=== PATIENT | male | born 1970 | race African-American/Black ===

== ENCOUNTER 2020-10-03 03:37 | Emergency (ER) | payer OTHER ==
[~2020-10-03] VITALS: Ht 190.5 cm; Wt 136.1 kg
--- NOTE | 2020-10-03 04:13 | NUR ---
ED Nurse Note: pt presented to ambulatory triage complaints of weakness, vomiting blood, nausea, and dark stools, pt is AOx4 ambulatory tachycardic, all other vitals stable no pertinent health history
--- NOTE | 2020-10-03 04:15 | NUR ---
ED Nurse Note: Blood, urine, and guaic sent to lab
--- NOTE | 2020-10-03 04:15 | Emergency Room Report ---
History of Present Illness General Chief Complaint: Gastrointestinal Bleed Source: Patient Present Illness HPI This is a 50-year-old male with history of high blood pressure. He presents with chief complaint of hematemesis. This occurred just prior to arrival. He said he vomited once and there was blood in it. He said his said it was blood. He thinks it is was a red drink that he had. At work today however, he said he had a black stool. Only one episode. He denies any alcohol use. Denies any smoking. Denies any drug use. He did take 4 [id number] Advil this evening. Denies any pain. No nausea no vomiting right now. No fever or chills. No abdominal pain. He did not take any Pepto-Bismol. Allergies: Coded Allergies: No Known Allergies (Unverified , 10/03/20) COVID-19 Screening Contact w/high risk pt: No Experienced COVID-19 symptoms?: Yes COVID-19 Testing performed [employer]: No Patient History Past Medical History: see triage record, old chart reviewed, HTN Past Surgical History: none Pertinent Family History: none Social History: Denies: smoking Immunizations: other Reviewed Nursing Documentation: PMH: Agreed; PSxH: Agreed Review of Systems Eye: Denies: eye pain, blurred vision ENT: Denies: ear pain, nose congestion, throat swelling Respiratory: Denies: cough, shortness of breath Cardiovascular: Denies: chest pain, palpitations Gastrointestinal: Reports: hematemesis; Denies: abdominal pain, diarrhea, nausea, vomiting Musculoskeletal: Denies: back pain, joint pain Skin: Denies: rash Neurological: Denies: headache, numbness Endocrine: Denies: increased thirst, increased urine Hematologic/Lymphatic: Denies: easy bruising All Other Systems: negative except mentioned in HPI Physical Exam Vital Signs Date Time Temp Pulse Resp B/P (MAP) Pulse Ox O2 Delivery O2 Flow Rate FiO2 10/03/20 03:41 98.2 114 20 125/75 (92) 94 Room Air Vitals with tachycardia Sp02 EP Interpretation: reviewed, normal General Appearance: well appearing, no apparent distress, alert, obese Head: normocephalic, atraumatic Eyes: bilateral eye PERRL, bilateral eye EOMI ENT: hearing grossly normal, normal pharynx Neck: full range of motion, supple, no meningismus Respiratory: chest non-tender, lungs clear, normal breath sounds Cardiovascular #1: regular rate, rhythm, no murmur Gastrointestinal: normal bowel sounds, non tender, no mass, no organomegaly, no bruit, non-distended Rectal: heme positive stool - Darkish colored stool Musculoskeletal: back normal, normal range of motion, gait/station normal Psychiatric: mood/affect normal Medical Decision Making Diagnostic Impression: Primary Impression: Gastrointestinal hemorrhage Qualified Codes: K92.0 - Hematemesis ER Course Patient presents with symptoms of an upper GI bleed. Its only one episode and it stopped. Hemoglobin is little low but not near the point of transfusion. He said he felt better now. Will discharge home with proton pump inhibitor and iron. He will be referred to see GI doctor for endoscopy. Told patient to avoid NSAID and aspirin. Last Vital Signs Date Time Temp Pulse Resp B/P (MAP) Pulse Ox O2 Delivery O2 Flow Rate FiO2 10/03/20 03:41 98.2 114 20 125/75 (92) 94 Room Air Status: improved Disposition: HOME, SELF-CARE Condition: Stable Scripts Ferrous Sulfate* (FERROUS SULFATE*) 325 Mg Tablet 325 MG ORAL DAILY for SUPPLEMENT, #30 TAB 0 Refills Prov: Bill Snyder MD 10/03/20 Pantoprazole* (PROTONIX*) 40 Mg Tablet. 40 MG ORAL DAILY, #30 TAB Prov: Bill Snyder MD 10/03/20 Additional Instructions: Avoid NSAIDs (aspirin, Motrin, Advil, Aleve, etc.). Follow-up with your doctor within 7 days. You will need referral to see a GI doctor for endoscopy and/or colonoscopy. Return if symptoms worsen or has more bleeding. Bill Snyder MD Oct 03, 2020 04:15
--- NOTE | 2020-10-03 04:15 | NUR ---
ED Nurse Note: 20G L AC placed
[2020-10-03 04:38] VITALS: BP 125/75
[2020-10-03 05:07] LABS: APPEARANCE,URINE CLEAR; BILIRUBIN, URINE NEGATIVE (NEGATIVE); COLOR,URINE PALE YELLOW; GLUCOSE, URINE (UA) NEGATIVE (NEGATIVE); KETONES,URINE 1+ (NEGATIVE); LEUKOCYTE ESTERASE ,URINE NEGATIVE (NEGATIVE); NITRITE,URINE NEGATIVE (NEGATIVE); PH,URINE 6 (4.5-8.0); PROTEIN,URINE NEGATIVE (NEGATIVE); UROBILINOGEN,URINE NORMAL MG/DL (0.0-1.0)
[2020-10-03 05:10] LABS: BASOPHILS % (AUTO) 1.5 % (0.0-2.0); EOSINOPHILS % (AUTO) 1.2 % (0.0-3.0); HEMATOCRIT 34.7 % (42.0-52.0); HEMOGLOBIN 11.1 G/DL (14.2-18.0); LYMPHOCYTES % (AUTO) 21.9 % (20.0-45.0); MEAN CORPUSCULAR VOLUME 83 FL (80-99); MONOCYTES % (AUTO) 7.2 % (1.0-10.0); NEUTROPHILS % (AUTO) 68.2 % (45.0-75.0); PLATELET COUNT 288 K/UL (150-450); RED BLOOD COUNT 4.16 M/UL (4.70-6.10); RED CELL DISTRIBUTION WIDTH 16.2 % (11.6-14.8); WHITE BLOOD COUNT 10.6 K/UL (4.8-10.8)
[2020-10-03 05:20] LABS: ANION GAP 3 mmol/L (5-15); BLOOD UREA NITROGEN 47 mg/dL (7-18); CALCIUM 7.9 MG/DL (8.5-10.1); CARBON DIOXIDE 30 MMOL/L (21-32); CHLORIDE 105 MMOL/L (98-107); CREATININE 1.1 MG/DL (0.55-1.30); POTASSIUM 3.9 MMOL/L (3.5-5.1); SODIUM 138 MMOL/L (136-145)
[2020-10-03 05:22] LABS: ALANINE AMINOTRANSFERASE 19 U/L (12-78); ALBUMIN/GLOBULIN RATIO 0.9 (1.0-2.7); ALKALINE PHOSPHATASE 58 U/L (46-116); ASPARTATE AMINO TRANSFERASE 18 U/L (15-37); BILIRUBIN,TOTAL 0.4 MG/DL (0.2-1.0)
[2020-10-03 05:32] VITALS: BP 117/73
[2020-10-03] MEDS ORDERED: FERROUS SULFAT325 MG ORAL (05:35)
[2020-10-03] MEDS ORDERED: PROTONIX40 MG ORAL (05:35)
--- NOTE | 2020-10-03 05:42 | NUR ---
ER DISCHARGE NOTE: Patient is cleared to be discharged per ERMD, pt is aox4, on room air, with stable vital signs. pt was given dc and prescription instructions, pt was able to verbalize understanding, pt id band and iv site removed without complications. pt is able to ambulate with steady gait. pt took all belongings.
== END 2020-10-03 05:42 | disposition home or self-care (01) ==
LOC: EMR 04:16
DX: K92.0 Hematemesis (principal); I10 Essential (primary) hypertension
CPT/HCPCS: 36415; 80053; 81003; 82270; 83690; 85025; 96361; 96374; 96375; J2405; J7030; Z7502; 99284